=== PATIENT | female | born 1955 | race Caucasian/White ===

== ENCOUNTER 2018-06-02 16:35 | Emergency (ER) | payer MEDICAID ==
[2018-06-02] MEDS ORDERED: CEPHALEXIN 500 MG CAPSULE PO ONE (19:43)
[2018-06-02] MEDS ORDERED: PHENAZOPYRIDINE HCL 100 MG TABLET PO ONE (19:43)
--- NOTE | 2018-06-02 19:43 | ER Document Report ---
ED GI/ - General Chief Complaint: Blood in Catheter Stated Complaint: BLOOD IN URINE Time Seen by Provider: 06/02/18 18:43 Notes: 63-year-old female to emergency department chief complaint of hematuria. Patient states she started noticing some discomfort in the bladder area and noticed that her urine looked red. Does not have any major medical problems other than COPD. Here visiting from out of town. No abnormal bruising. No significant abdominal pain. No vomiting. No fever. 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 COUNTRY TRAVELED TO/FROM: [facility] Patient complains to provider of: Urinary retention Onset: Yesterday Timing/Duration: Gradual, Worse Quality of pain: Burning Severity at maximum: Moderate Severity in ED: Moderate Pain Level: 1 Vaginal bleeding (Compared to normal period): None - Related Data Allergies/Adverse Reactions: morphine Allergy (Verified 06/02/18 16:42) Sulfa (Sulfonamide Antibiotics) Allergy (Verified 06/02/18 16:42) mycin Allergy (Uncoded 06/02/18 18:41) Past Medical History - General Information source: Patient - Social History Smoking Status: Current Every Day Smoker Cigarette use (# per day): Yes Frequency of alcohol use: None Drug Abuse: None Lives with: Family Family History: Reviewed & Not Pertinent Patient has suicidal ideation: No Patient has homicidal ideation: No Pulmonary Medical History: Reports: Hx Bronchitis, Hx COPD Renal/ Medical History: Denies: Hx Peritoneal Dialysis Psychiatric Medical History: Reports: Hx Depression Review of Systems - Review of Systems Notes: Constitutional: denies: Chills, Diaphoresis, Fever, Malaise, Weakness EENT: denies: Eye discharge, Blurred vision, Tearing, Double vision, Nose congestion, Nose discharge, Throat swelling, Mouth pain Cardiovascular: denies: Palpitations, Heart racing, Orthopnea, Dyspnea, Chest pain Respiratory: denies: Cough, Hurts to breathe, Wheezing, Shortness of breath Gastrointestinal: denies: Abdominal pain, Diarrhea, Nausea, Vomiting, Black stools, bright red blood in stool Genitourinary: Complaining of dysuria with urinary retention and hematuria and some mild right flank pain. Musculoskeletal: denies: Joint pain, Joint swelling, Muscle pain, Muscle stiffness, back pain Hematologic/Lymphatic: denies: Anemia, Easy bleeding, Easy bruising, Blood clots Neurological/Psychological: denies: Confusion, Dementia, Depression, Loss of consciousness Skin: No lesions, no masses, no skin breakdown, no abscesses Physical Exam - Vital signs Vitals: Temp Pulse Resp BP Pulse Ox 99.1 F 96 18 109/72 97 06/02/18 17:09 06/02/18 17:09 06/02/18 17:09 06/02/18 17:09 06/02/18 17:09 Interpretation: Normal - General General appearance: Appears well, Alert - HEENT Head: Normocephalic, Atraumatic Eyes: Normal Pupils: PERRL - Respiratory Respiratory status: No respiratory distress Chest status: Nontender Breath sounds: Normal Chest palpation: Normal - Cardiovascular Rhythm: Regular Heart sounds: Normal auscultation Murmur: No - Abdominal Inspection: Normal Distension: No distension Bowel sounds: Normal Tenderness: Nontender Organomegaly: No organomegaly - Back Back: Normal, Nontender - Extremities General upper extremity: Normal inspection, Nontender, Normal color, Normal ROM, Normal temperature General lower extremity: Normal inspection, Nontender, Normal color, Normal ROM, Normal temperature, Normal weight bearing. No: Beverly's sign - Neurological Neuro grossly intact: Yes Cognition: Normal Orientation: AAOx4 [place] Coma Scale Eye Opening: Spontaneous [place] Coma Scale Verbal: Oriented [place] Coma Scale Motor: Obeys Commands [place] Coma Scale Total: 15 Speech: Normal Motor strength normal: LUE, RUE, LLE, RLE Sensory: Normal - Psychological Associated symptoms: Normal affect, Normal mood - Skin Skin Temperature: Warm Skin Moisture: Dry Skin Color: Normal Course - Re-evaluation Re-evalutation: 06/02/18 19:46 Patient went to provide a urine sample and came back with a large clot in the specimen cup. A bedside ultrasound was performed which showed a large amount of urinary retention. I requested to place a Olson catheter in the patient however patient does not want that. She states that she actually feels a little bit better after passing the clot. I ordered a bedside bladder scanner to be brought to the room. In between the time that the initial bedside ultrasound was performed and the bladder scanner arrived patient went back to the bathroom and passed another large clot and then proceeded into urinating approximately 1 L of urine. Patient states that she is asymptomatic at this time and does not want to stay any longer. I have advised her that she had a large amount of blood and that is not normal and that this needs to be followed up with a urologist. We will give her urology follow-up information. At this time will place her on Pyridium and empiric antibiotic at this time. Patient advised to return immediately if she develops inability to urinate, worsening pain, fever, worsening flank pain, abnormal rash, bruising, confusion or any other concerns. We did not do blood work at this time as patient was adamant that she wanted to go home. This was offered. At this time we will discharge her in stable condition with the diagnosis of hemorrhagic cystitis and urinary retention - Vital Signs Vital signs: Temp Pulse Resp BP Pulse Ox 99.1 F 96 18 109/72 97 06/02/18 17:09 06/02/18 17:09 06/02/18 17:09 06/02/18 17:09 06/02/18 17:09 Discharge - Discharge Clinical Impression: Hemorrhagic cystitis Condition: Good Disposition: HOME, SELF-CARE Instructions: Hematuria ([facility]), Urinary Tract Infection ([facility]), Urinary Retention ([facility]) Additional Instructions: If you get to where you cannot urinate, you have worsening pain, fever, rash, bruising, confusion or any other concerns you should return. It will be very important that you follow-up with a urologist as further testing will be needed. Drink plenty of fluids so that you are urinating frequently. Prescriptions: Cephalexin Monohydrate [Keflex 500 mg Capsule] 500 mg PO Q6H 7 Days #28 capsule Phenazopyridine HCl [Pyridium 100 Mg Tablet] 100 mg PO Q8H 3 Days #9 tablet Referrals: [facility] [Provider Group] - Follow up in 3-5 days
[2018-06-02 20:32] LABS: BILIRUBIN,URINE NEGATIVE (NEGATIVE); GLUCOSE, URINE 50 mg/dL (NEGATIVE); KETONES,URINE NEGATIVE (NEGATIVE); LEUKOCYTE ESTERASE,URINE NEGATIVE (NEGATIVE); NITRITE,URINE NEGATIVE (NEGATIVE); PROTEIN,URINE 100 mg/dL (NEGATIVE); URINE SPECIFIC GRAVITY 1.012; UROBILINOGEN,URINE NEGATIVE mg/dL (<2.0)
[2018-06-02 20:33] LABS: APPEARANCE,URINE TURBID; COLOR,URINE RED
[2018-06-02 21:18] VITALS: BP 118/84
== END 2018-06-02 20:05 | disposition home or self-care (01) ==
LOC: ER 16:35
DX: N30.91 Cystitis, unspecified with hematuria (principal); R33.9 Retention of urine, unspecified; F17.210 Nicotine dependence, cigarettes, uncomplicated; J44.9 Chronic obstructive pulmonary disease, unspecified; Z88.6 Allergy status to analgesic agent; Z88.2 Allergy status to sulfonamides
CPT/HCPCS: 99284; 87086; 87088; 81001; 87186; J3490